=== PATIENT | female | born 1995 | race Caucasian/White ===

== ENCOUNTER 2018-04-30 12:31 | Outpatient (CLI) | payer BC ==
--- NOTE | 2018-04-30 15:37 | MRI ---
MRI LEFT KNEE PERFORMED WITHOUT CONTRAST ENHANCEMENT: Date: 04/30/18 HISTORY: Patient has history of recurrent knee dislocations for the last 10 years. Knee has been popping out m ore often recently. Unable to bear weight on knee. FINDINGS: The anterior, as well as posterior cruciate ligaments are intact. The medial and lateral menisci are normal in shape and appearance. \ The medial and lateral collateral ligaments, as well as iliotibial band regions are normal. There is an area of full thickness articular cartilage loss involving the more inferior articular juan face of the medial facet. This area measures approximately 8.0 mm in size. There are articular bodies present. One is seen along the posterior margin of Hoffa's fat pad directly anterior to the tibial i nsertion of the ACL. This measures 8.0 mm in size. There is another articular body that is seen more in the suprapatellar region measuring 6.0 mm and also some articular bodies seen directly posterior t o the lateral meniscus. The patella is slightly laterally subluxed. The medial facet is not hypoplastic. Trochlear groove is minimally shallow. Patellar tendon is intact. Quadriceps tendon is normal. IMPRESSION: Area of full thickness articular cartilage loss involving the more inferior articular surface of the medial facet of the patella. There are also some articular bodies present. The patella is slightly me dially subluxed. Medial and lateral patellar retinaculum are intact. POS: [facility]
== END 2018-04-30 12:32 | disposition home or self-care (01) ==
LOC: SCSMRI 12:31
PROVIDERS: ATTEND Pediatrics Sports Medicine
DX: M25.562 Pain in left knee (principal); M35.7 Hypermobility syndrome; R29.898 Other symptoms and signs involving the musculoskeletal system; M62.89 Other specified disorders of muscle; S83.005D Unspecified dislocation of left patella, subsequent encounter; S83.002A Unspecified subluxation of left patella, initial encounter

== ENCOUNTER 2018-05-15 15:40 | Outpatient (CLI) | payer BC ==
[2018-05-15 16:55] LABS: BHCG - Serum Negative (NEGATIVE); Pregs Control Background? CLEAR/WHITE (CLR/WHITE); Pregs Control Bar Appear? YES (CONTROL BAR)
== END 2018-05-15 15:41 | disposition home or self-care (01) ==
LOC: EDBD → LABBT 15:40
PROVIDERS: ATTEND Orthopaedic Surgery
DX: Z01.812 Encounter for preprocedural laboratory examination (principal); M23.42 Loose body in knee, left knee
CPT/HCPCS: 84703

== ENCOUNTER 2018-05-16 09:04 | Day surgery (SDC) | payer BC ==
[2018-05-15 17:55] VITALS: BMI 25.4
[2018-05-16] MEDS ORDERED: PROPOFOL 20 ML ONE (10:06)
[2018-05-16] MEDS ORDERED: Fentanyl 100 MCG/2 ML VIAL ONE (10:49)
[2018-05-16] MEDS ORDERED: Meperidine HCl/PF 25 MG/ML VIAL ONE (11:53)
[2018-05-16] MEDS ORDERED: Bupivacaine HCl 0.5%/Epinephrine 1:200,000/PF 30 ml Vial ONE (11:56)
[2018-05-16] MEDS ORDERED: Lidocaine 2% w/Epinephrine 1:200K 20 ML VIAL ONE (11:56)
[2018-05-16] MEDS ORDERED: Promethazine HCl 25 MG/ML VIAL ONE (12:25)
--- NOTE | 2018-05-16 12:29 | OP ---
DATE OF PROCEDURE: 05/16/2018 PREOPERATIVE DIAGNOSIS: Left unstable patella with multiple loose bodies in the left knee. POSTOPERATIVE DIAGNOSIS: Left unstable patella with multiple loose bodies in the left knee. PROCEDURE PERFORMED: Left knee arthroscopy with removal of multiple large cartilaginous loose bodies. MANAGER PROCESS: None. ANESTHESIA: The patient had general anesthetic, also had a local knee block. DISPOSITION: She went to recovery room in stable condition. INDICATIONS: This 22-year-old female, who has had multiple episodes patellar dislocation for years. At this time, her knee was locked up from multiple loose bodies. At this time, she did not want to have the patella reconstructed and stabilized just to have the loose bodies removed secondary to a near future move from the local community. DESCRIPTION OF PROCEDURE: After verbal consent forms were explained and signed by Araceli, she was taken to the operating room and at this time was given a general anesthetic. Tourniquet was placed on left thigh. Leg was placed in arthroscopic leg allen. The limb was then prepped and draped in standard surgical fashion. At this time, the knee was exsanguinated. Tourniquet taken down to 300 mmHg. Throughout the procedure, it was noted that the patella was extremely unstable, tending to ride laterally majority of the time. As we got into the notch, placed the scope into the notch, a needle localization technique was used to make a medial working portal. Immediately, a large loose body was encountered in the notch. This was removed with a grasper. There was a small loose body noted at the tibial insertion of the ACL, this was removed. The cartilage on the femur and the medial meniscus and the tibia overall were in good condition. There was some minor damage in these areas. The gutters were swept through the medial gutter and was clean. The lateral gutter had a lot of soft tissue in it and also some cartilaginous loose bodies. These were each removed with the grasper. The patellofemoral joint showed the trochlea to be very shallow and essentially nonexistent at the patella itself. The medial portion of it had no cartilage whatsoever. This had chronic granulation tissue growing. The lateral portion of it had some good cartilage. There were multiple loose bodies noted in the suprapatellar pouch and again these were removed with the grasper. The lateral compartment was entered. The femur and tibia were in good condition. The lateral meniscus was in good condition. There were three large loose bodies noted posterior to the lateral meniscus by putting pressure on the posterior lateral capsule of the joint, pushed these toward the midline and these were then grasped sequentially and removed from the knee joint. We then went through the knee one more time looking for any remaining loose bodies. We were confident that there were no more. We went ahead and removed the scope, drained the knee, and closed the portals with simple nylon stitch. Bulky sterile dressing was applied as well as a knee immobilizer. The patient was then awakened, taken to recovery room in stable condition. All counts were correct at the end of the case. She did receive preoperative IV antibiotics. Job ID: [id number] [facility]
[2018-05-16] MEDS ORDERED: ePHEDrine 50 MG/ML VIAL ONE (13:16)
[2018-05-16] MEDS ORDERED: Lidocaine 1% PF 5 ML VIAL ONE (13:16)
[2018-05-16] MEDS ORDERED: PROPOFOL 200 MG/20 ML VIAL ONE (13:16)
[2018-05-16] MEDS ORDERED: Ondansetron PF 4 MG/2 ML Vial ONE (13:16)
== END 2018-05-16 15:30 | disposition home or self-care (01) ==
LOC: SDC 09:04 → EDBD 09:04 → SDC 15:30
PROVIDERS: ATTEND Orthopaedic Surgery
PROC: 0SCD4ZZ Extirpation of Matter from Left Knee Joint, Percutaneous Endoscopic Approach (ICD-10-PCS; principal; 2018-05-16)
DX: M23.42 Loose body in knee, left knee (principal); M25.362 Other instability, left knee
CPT/HCPCS: J2175; J2550; J2704; J3010